=== PATIENT | female | born 1975 | race Caucasian/White ===

== ENCOUNTER 2019-05-26 15:36 | Day surgery (SDC) ==
[2019-05-26] MEDS ORDERED: DIPRIVAN 1% ONE (16:17)
[2019-05-26] MEDS ORDERED: ROBINUL ONE (16:17)
[2019-05-26] MEDS ORDERED: QUELICIN (DOSE) ONE (16:17)
[2019-05-26] MEDS ORDERED: XYLOCAINE-MPF 2% ONE (16:17)
[2019-05-26] MEDS ORDERED: ZOSYN 3.375 GM in NS 50 ML IV ONE (16:20)
[2019-05-26] MEDS ORDERED: TORADOL ONE (16:48)
[2019-05-26] MEDS ORDERED: ZOFRAN ONE (16:48)
[2019-05-26] MEDS ORDERED: OFIRMEV 1000 MG/ISOTONIC SOLN 1,000 MG/100 ML BOTTLE ONE (16:49)
[2019-05-26] MEDS ORDERED: D5 1/2 NS 1,000 ML ONE (17:25)
[2019-05-26] MEDS ORDERED: MORPHINE IV PRN (18:03)
[2019-05-26] MEDS ORDERED: ZOFRAN IV PRN (18:04)
[2019-05-26] MEDS ORDERED: VANCOMYCIN IV PER PHARMACY MISC SCH (18:15)
[2019-05-26 18:57] LABS: URINE SOURCE VOIDED
[2019-05-26 19:11] LABS: BASO# 0.05 X1000 (0.0-0.2); BASO% 0.4 % (0.0-0.8); EOS# 0.13 X1000 (0.0-0.7); EOS% 1.1 % (0.0-10.0); HEMATOCRIT 35.9 % (37.0-47.0); HEMOGLOBIN 11.5 g/dL (12.0-16.0); IMM GRAN# 0.04 X1000 (0.0-0.04); IMM GRAN% 0.3 % (0.0-0.5); LYMPH# 1.57 X1000 (1.2-3.4); LYMPH% 12.8 % (20.5-51.1); MCH 28.5 PG (27-31); MCV 89.1 FL (81-99); MONO# 0.93 X1000 (0.11-0.59); MONO% 7.6 % (1.7-9.3); MPV 10.2 FL (7.4-10.4); NEUT# 9.55 X1000 (1.4-6.5); NEUT% 77.8 % (42.2-75.2); PLT 277 X1000 (130-400); RBC 4.03 XMIL (4.2-5.4); RDW 14.1 % (11.5-14.5); WBC 12.27 X1000 (4.8-10.8)
[2019-05-26 19:24] LABS: BILIRUBIN URINE NEGATIVE (NEGATIVE); BLOOD URINE NEGATIVE (NEGATIVE); COLOR YELLOW; GLUCOSE URINE NEGATIVE (NEGATIVE); KETONE URINE NEGATIVE (NEGATIVE); LEUKOCYTES URINE NEGATIVE (NEGATIVE); NITRITE URINE NEGATIVE (NEGATIVE); PH URINE 6.5; PROTEIN URINE NEGATIVE (NEGATIVE); SP GRAVITY URINE 1.023; TURBIDITY URINE CLEAR (CLEAR); UROBILINOGEN URINE NORMAL (NORMAL)
[2019-05-26 19:25] LABS: UR EPITHELIAL CELLS <10 /HPF (<10); URINE BACTERIA NEGATIVE /HPF; URINE RBC <10 /HPF (<10); URINE WBC <10 /HPF (<10)
[2019-05-26 19:33] LABS: AGAP 13; ALB/GLOB RATIO 0.9; ALBUMIN 3.6 g/dL (3.5-5.0); ALKALINE PHOSPHATASE 187 U/L (32-104); BUN 11 mg/dL (8-22); CALCIUM 9.2 mg/dL (8.8-10.2); CHLORIDE 101 mmol/L (98-107); COSMO 278; CREATININE 0.7 mg/dL (0.5-0.9); ESTIMATED GFR > 60; GLUCOSE 152 mg/dL (70-104); GOT 24 U/L (10-30); GPT 31 U/L (10-36); POTASSIUM 3.7 mmol/L (3.5-5.1); SODIUM 138 mmol/L (136-145); TCO2 24 mmol/L (25-35); TOTAL BILIRUBIN 0.57 mg/dL (0.20-1.00); TOTAL PROTEIN 7.5 g/dL (6.3-8.3)
[2019-05-26] MEDS: D5 1/2 NS 1,000 ML IV SCH (21:42)
[2019-05-26] MEDS: PERIDEX MT SCH (22:01)
[2019-05-26] MEDS: ZOSYN 3.375 GM in NS 50 ML IV SCH (22:01)
[2019-05-26] MEDS: VANCOMYCIN 2 GM in NS 500 ML IV SCH (22:43)
[2019-05-27] MEDS: NORCO-10 PO PRN ×2 (02:43→17:33)
[2019-05-27] MEDS: D5 1/2 NS 1,000 ML IV SCH ×2 (05:21→20:35)
[2019-05-27] MEDS: ZOSYN 3.375 GM in NS 50 ML IV SCH ×5 (05:21→23:45)
[2019-05-27 06:36] LABS: HEMATOCRIT 32.8 % (37.0-47.0); HEMOGLOBIN 10.4 g/dL (12.0-16.0); MCH 28.5 PG (27-31); MCHC 31.7 g/dL (33-37); MCV 89.9 FL (81-99); MPV 10.3 FL (7.4-10.4); RBC 3.65 XMIL (4.2-5.4); RDW 14.2 % (11.5-14.5); WBC 9.04 X1000 (4.8-10.8)
[2019-05-27 06:53] LABS: AGAP 13; BUN 12 mg/dL (8-22); CALCIUM 8.6 mg/dL (8.8-10.2); CHLORIDE 101 mmol/L (98-107); COSMO 277; CREATININE 0.7 mg/dL (0.5-0.9); ESTIMATED GFR > 60; GLUCOSE 132 mg/dL (70-104); POTASSIUM 3.4 mmol/L (3.5-5.1); SODIUM 138 mmol/L (136-145); TCO2 24 mmol/L (25-35)
[2019-05-27] MEDS: HYZAAR 100/12.5 MG TAB PO SCH ×2 (07:46→08:12)
[2019-05-27] MEDS: PERIDEX MT SCH ×3 (07:46→20:35)
[2019-05-27] MEDS: LIPITOR PO SCH ×2 (07:46→08:13)
[2019-05-27] MEDS: CENTRUM TABLET PO SCH ×2 (07:46→08:12)
[2019-05-27] MEDS: VANCOMYCIN 2 GM in NS 500 ML IV SCH (14:15)
--- NOTE | 2019-05-27 15:25 | OPERATIVE NOTE ---
PROCEDURE DATE: 05/26/2019 PREOPERATIVE DIAGNOSIS: Large necrotic abscess, left upper abdominal wall. PROCEDURE: 1. Debridement 9 x 5 x 4 cm. 2. Anaerobic and aerobic cultures being obtained. 3. Wound VAC being deployed. DESCRIPTION OF PROCEDURE: The patient was brought to the operating room. After satisfactory induction of IV and LMA anesthesia, her left upper abdominal wall was prepped and draped in the appropriate manner. The large necrotic abscess was punched with decompression of a large amount of purulent material. Anaerobic and aerobic cultures were obtained. 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 A large ellipse of necrotic skin and subcutaneous tissue was subsequently excised sharply with hemostasis being achieved by electrocautery. The wound was irrigated with peroxide and a wound VAC was deployed with a satisfactory seal. The patient was subsequently awakened and extubated in the operating room and transferred to recovery. ESTIMATED BLOOD LOSS: 40 to 50 mL. cc: Tomás Tellez MD
[2019-05-28] MEDS: NORCO-10 PO PRN ×2 (01:21→12:26)
[2019-05-28] MEDS: ZOSYN 3.375 GM in NS 50 ML IV SCH ×2 (05:11→14:07)
[2019-05-28] MEDS: D5 1/2 NS 1,000 ML IV SCH ×2 (05:27→07:34)
[2019-05-28] MEDS: PERIDEX MT SCH (08:55)
[2019-05-28] MEDS: CENTRUM TABLET PO SCH (08:55)
[2019-05-28] MEDS: HYZAAR 100/12.5 MG TAB PO SCH (08:55)
[2019-05-28] MEDS: LIPITOR PO SCH (08:55)
[2019-05-28] MEDS: VANCOMYCIN 2 GM in NS 500 ML IV SCH (09:51)
[2019-05-28 12:02] VITALS: BP 143/72
== END 2019-05-28 15:40 | disposition home or self-care (01) ==
LOC: 4N 15:36 → OR 15:36
PROVIDERS: ATTEND Surgery